=== PATIENT | male | born 1935 | race Caucasian/White ===

== ENCOUNTER 2017-02-05 20:31 | Inpatient (IN) | payer MEDICARE, BC ==
--- NOTE | ~2017-02-05 | IDS ---
Interim Discharge Summary [facility] [address] [place]. [address] NAME: CESAR WILSON III : 37 STATUS : ADM IN PAT#: [id number] AGE: 81 ADM/REG DATE : 02/05/17 MR#: [id number] REPORT SERV DATE: 02/08/17 DICTATED BY: Noah VAZQUEZ DATE: 02/08/17 REPORT STATUS : Draft TRANSCRIBED BY: MODL DATE: 02/08/17 ADMISSION DATE: 02/05/2017 DISCHARGE DATE: DATE OF INTERIM SUMMARY: 02/08/2017. DIAGNOSES AT THE TIME OF INTERIM SUMMARY: 1. Sepsis, resolved urinary tract infection, present on admission. 2. Renal cell cancer, stage IV. 3. Myeloma. 4. Adrenal insufficiency. 5. Chronic atrial fibrillation, on Eliquis therapy. 6. Prior nephrectomy. 7. Prior bilateral adrenalectomy. 8. Pancytopenia secondary to chemotherapy. CONSULTS: Medical Oncology. PROCEDURES: None. BRIEF SUMMARY: This 81-year-old male patient with malignancies as mentioned above, on active therapy under the care of [facility], was admitted with sepsis with suspicion of urinary tract origin. Started on broad-spectrum antimicrobial therapy with alves-cultures. The patient responded well to initial treatment with aggressive volume resuscitation as well as low-dose pressor and the above-mentioned antibiotics. Subsequent cultures from the urine and blood have grown a pansensitive E. coli. As a result of culture information, the patient's antimicrobial therapy has been downgraded to IV Levaquin. We anticipated 10-14 day course. The patient's chemotherapeutic agents have been held secondary to his active infection. He continues to be monitored closely by [facility]. He has been weaned off his pressor. His blood pressure remained stable. Because of his previous surgery, he was given stress-dose steroids with Solu-Cortef at 100 mg IV 3 times a day. We will slowly wean this back to his baseline oral dose of hydrocortisone 4 mg daily. The patient is stabilized to the point that he can be transitioned to the Oncology floor. We will continue to monitor his labs very closely. We will begin the process of mobilizing him to improve his functional status and as mentioned above, we have simplified his antimicrobial therapy as well as started the process of weaning his steroids. The patient's hospitalist care will be provided by Dr. Richi Cook of the Oncology service along with co-management by [facility]. LABORATORY DATA: Significant labs at the time of interim summary: White count is 1.8, hemoglobin 8.8, and platelets 53. BUN is 30, creatinine 0.92, and potassium 4.2. [facility]/LEANNE Interim Discharge Summary [address] [place]. [address] NAME: CESAR WILSON III : 37 STATUS : ADM IN PAT#: [id number] AGE: 81 ADM/REG DATE : 02/05/17 MR#: [id number] REPORT SERV DATE: 02/08/17 DICTATED BY: Noah VAZQUEZ DATE: 02/08/17 REPORT STATUS : Draft TRANSCRIBED BY: LEANNE DATE: 02/08/17 Noah Vazquez M.D. / [id number]
--- NOTE | ~2017-02-05 | HP ---
History And Physical [address] [place]. [address] NAME: CESAR WILSON III : 37 STATUS : ADM IN [facility]#: [id number] AGE: 81 ADM/REG DATE : 02/05/17 MR#: [id number] REPORT SERV DATE: 02/06/17 DICTATED BY: BELINDA GLYNN DATE: 02/06/17 REPORT STATUS : Draft TRANSCRIBED BY: MODL DATE: 02/06/17 DATE OF ADMISSION: 02/05/2017 CHIEF COMPLAINT: An 81-year-old male presenting with lethargy, and fevers. HISTORY OF PRESENT ILLNESS: The patient's history was obtained through careful interview with the patient, , and daughter, coupled with review of [facility] and [facility] medical records. The patient has longstanding metastatic renal cell carcinoma to the liver and lungs, undergoing chemotherapy under the care Dr. Sharma. On the morning of admission, he developed significant illness. He "stayed in bed" all day long, had some nausea, but no vomiting and was extremely lethargic. By the evening, the patient was seemed to be poorly responsive. He had fevers, chills, was weak, and shaky. He has had a cough productive of thick mucous. We needed to lose slight urine continence tonight. He has had about a 30-pound weight loss over the last 20 years but this has been very gradual. He has no pain complaints tonight. No headache, no chest pain, no back pain, no abdominal pain. No shortness of breath. No hematuria. No dysuria. REVIEW OF SYSTEMS: Otherwise, a 14-point review of systems was obtained and was negative. PAST MEDICAL HISTORY: 1. Metastatic renal cell carcinoma to the liver and lungs, followed by Dr. Sharma since 1995. 2. Multiple myelomas. 3. 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 4. Depression/anxiety/bipolar disorder. 5. Atrial fibrillation on Eliquis, followed by Dr. Quinteros. 6. Hypertension. 7. Pneumonia. 8. COPD. 9. Previous bacteremia with Enterobacter in May 2016. 10.Abdominal aortic aneurysm. 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 12.Colon polyps seen by Dr. Gudino. 13.Pancreatitis. History And Physical [address] [place]. [address] NAME: CESAR WILSON III : 37 STATUS : ADM IN PAT#: [id number] AGE: 81 ADM/REG DATE : 02/05/17 MR#: [id number] REPORT SERV DATE: 02/06/17 DICTATED BY: BELINDA GLYNN DATE: 02/06/17 REPORT STATUS : Draft TRANSCRIBED BY: MODL DATE: 02/06/17 PAST SURGICAL HISTORY: 1. Left nephrectomy under the care of Dr. Martines. 2. Bilateral adrenalectomy. 3. Right inguinal hernia repair. 4. Cholecystectomy. 5. Neck cyst surgery. ALLERGIES: PENICILLIN. SOCIAL HISTORY: Quit smoking. Drinks occasional wine. He is . He has two children. Lives in [place], [place]. 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 FAMILY HISTORY: Mother at 82 years of age. Father with colon cancer and congestive heart failure. There is also an apparent family history of Von Hippel-Lindau syndrome. CURRENT MEDICATIONS: 1. Aspirin 81 mg daily. 2. Xgeva. 3. Flonase. 4. Multivitamin. 5. Florastor. 6. Calcium and vitamin D. 7. Decadron as needed. 8. Eliquis p.o. b.i.d. 9. Rythmol t.i.d. 10.Florinef. 11.Hydrocortisone. 12.Phenergan p.r.n. 13.Protonix. 14.Zoloft. 15.Vitamin B12. 16.Revlimid. PHYSICAL EXAMINATION: VITAL SIGNS: Temperature 101.3, pulse 80, blood pressure was initially 140/61, but then began to sustain in the 70s systolic and during my evaluation it drop to 72/39, respiratory rate 16, O2 saturation 97% on room air. GENERAL: An ill-appearing male, in no evidence of distress, but is quite lethargic HEENT: Pupils are equal, round, and reactive to light. No conjunctival pallor. No scleral icterus. Nares are patent. Oropharynx is clear of obstruction. Very dry mucous membranes. NECK: Trachea midline. No thyromegaly. LYMPH: No cervical lymphadenopathy. No supraclavicular lymphadenopathy. RESPIRATORY: Clear to auscultation at bases. No wheezes, rales, or rhonchi. Normal respiratory effort. History And Physical [id number] [facility] [place]. [address] NAME: CESAR WILSON III : 37 STATUS : ADM IN PAT#: [id number] AGE: 81 ADM/REG DATE : 02/05/17 MR#: [id number] REPORT SERV DATE: 02/06/17 DICTATED BY: BELINDA GLYNN DATE: 02/06/17 REPORT STATUS : Draft TRANSCRIBED BY: MODMykel DATE: 02/06/17 CARDIOVASCULAR: Regular rate and rhythm. No murmurs, rubs, or gallops. No extremity edema is appreciated. ABDOMEN: Completely soft without any tenderness on my exam. No hepatosplenomegaly can be appreciated. DERMATOLOGICAL: Warm and dry extremities. No pallor. No cyanosis. PSYCHIATRIC: Quite lethargic but easily aroused, focal stimuli. He is oriented x3 at this time. He has a normal affect and a good mood. LABORATORY DATA: White blood cell count 1.6, hemoglobin 11, hematocrit 34, platelets 75. Sodium 141, potassium 3.6, chloride 104, bicarb 24, BUN 30, creatinine 1.45 from a baseline creatinine of 0.9, glucose 126, lactic acid 3.2. Influenza negative. Urinalysis shows greater than 182 red blood cells, 172 white blood cells, moderate leukocyte esterase, positive nitrites. STUDIES: Chest x-ray by my own evaluation shows no acute cardiopulmonary process. ASSESSMENT AND PLAN: 1. Neutropenic fever, on chemotherapy, metastatic disease to the liver and lungs. Check blood cultures. Check urine culture. Place on IV cefepime and IV vancomycin. 2. Adrenal crisis. Place on IV hydrocortisone. Stress dosing. Admit to the [facility] for now. I placed a central line as well in the emergency department and started IV Levophed. 3. Acute kidney injury, place on IV fluids. 4. Paroxysmal atrial fibrillation, on Eliquis. 5. Renal cell carcinoma. Oncology consult with Dr. Sharma. 6. Hematuria, Took a CT scan of the abdomen on the morning of February 06. KPL/MODL Belinda Glynn M.D. / [id number] CC: Noah Vazquez M.D. Unknown Hamzah Sigala M.D.
--- NOTE | ~2017-02-05 | DS ---
Discharge Summary [facility] [address] [place]. [address] NAME: CESAR WILSON III : 37 STATUS : DIS IN PAT#: [id number] AGE: 81 ADM/REG DATE : 02/05/17 MR#: [id number] REPORT SERV DATE: 02/11/17 DICTATED BY: LEEANNA BURRIS DATE: 02/11/17 REPORT STATUS : Draft TRANSCRIBED BY: MODL DATE: 02/11/17 ADMISSION DATE: 02/05/2017 DISCHARGE DATE: 02/11/2017 DISCHARGE DIAGNOSES: 1. Sepsis, resolved. 2. Urinary tract infection present on admission, positive Escherichia coli. 3. Renal cell carcinoma, stage IV. 4. Multiple myeloma. 5. Adrenal insufficiency. 6. Chronic atrial fibrillation, on Eliquis. 7. Prior nephrectomy. 8. Prior bilateral adrenalectomy. 9. Pancytopenia, chemo induced. CONSULTATIONS: Oncology. PROCEDURES: None. IMAGIN. Chest x-ray on February 05, 2017 finding suggest underlying clinical COPD, emphysematous type. 2. CT abdomen and pelvis, February 06, 2017; impression, question interval procedures to the liver. The right hepatic lobe appears mildly atrophied and there is now development of a remaining calcified mass not seen previously. There has been a remote nephrectomy and bilateral adrenalectomy. Progressive increase in abdominal aortic size, recommend Vascular consultation, possibly of a covered stent. No acute GI or obstruction is seen. LABORATORY DATA: February 11, 2017: WBC is 3.0, hemoglobin 11.1, hematocrit 33.8, and platelet count is 70. Sodium is 147, potassium 4.4, chloride 113, CO2 is 25, BUN is 29, creatinine is 1.08. Glucose is 98 and calcium is 8.5. COURSE OF HOSPITAL STAY: Please refer to history and physical dictated by Dr. Tr Ponce on February 05, 2017, as well as consultation note by Dr. Sharma on February 05 and interim note on February [address] Vazquez. This patient is an 81-year-old male who was admitted for sepsis with suspicion of urinary tract origin. The patient was initially started on broad-spectrum antibiotic. Cultures did return positive E. coli. The antibiotic was changed to Levaquin. He will complete antibiotics on February 14, 2017. The patient was followed by Oncology during his hospital stay. Blood work has noted pancytopenia due to chemotherapy. The patient was initially on pressors, but was able to wean off. His blood pressure is stable at this time. Due to the patient's previous surgery, the patient has been on the Solu-Cortef, he is back on his home dosing. The patient is stable at this time and being discharged home on home medications with the addition of Levaquin to complete on February 14, 2017. The patient has had complaints Discharge Summary [address] [place]. [address] NAME: CESAR WILSON III : 37 STATUS : DIS IN PAT#: [id number] AGE: 81 ADM/REG DATE : 02/05/17 MR#: [id number] REPORT SERV DATE: 02/11/17 DICTATED BY: LEEANNA BURRIS DATE: 02/11/17 REPORT STATUS : Draft TRANSCRIBED BY: LEANNE DATE: 02/11/17 of generalized weakness and has been able to ambulate with staff using a walker without difficulty. We will discharge home with home health care and physical therapy. DISCHARGE MEDICATIONS: 1. Eliquis 2.5 mg one p.o. twice daily. 2. Aspirin 81 mg one daily. 3. Vitamin B12 2500 mcg tab and 5000 mcg sublingual at bedtime. 4. Florinef 0.1 mg one p.o. every morning. 5. Decadron 4 mg and 40 mg p.o. every seven days. 6. Flonase nasal spray, two sprays at bedtime. 7. Cortef 5 mg and 40 mg p.o. every morning. 8. Cortef 5 mg and 40 mg p.r.n. for acute illness. 9. Levaquin 750 mg to be complete one daily to be completed on February 14, 2017. 10.Multivitamin one daily. 11.Protonix 40 mg one p.o. daily. 12.Rythmol 150 mg and 75 mg p.o. three times daily. 13.Florastor 250 mg one p.o. at supper. 14.Zoloft 100 mg one p.o. every morning. 15.Calcium plus vitamin D one p.o. at bedtime. 16.Xgeva per Oncology. 17.Metronidazole 0.75% topical to nose. 18.PreserVision soft gels one cap twice daily. 19.Phenergan 25 mg and 12.5 mg every six hours p.r.n. for nausea. 20.Revlimid per Oncology. 21.Travatan Z 0.004% one drop ophthalmic in both bilateral eyes at bedtime. 22.Vitamin A, vitamin C, and vitamin E, zinc, copper one cap p.o. twice daily. 23.Senokot tab 17.2 mg p.o. p.r.n. for constipation. This discharge took less than 30 minutes. RONALD/LEANNE Leeanna Burris NP / [id number] CC: Richi Cook MD
--- NOTE | ~2017-02-05 | CN ---
Consultation Report [facility] [address] [place]. [address] NAME: CESAR WILSON III : 37 STATUS : ADM IN PAT#: [id number] AGE: 81 ADM/REG DATE : 02/05/17 MR#: [id number] REPORT SERV DATE: 02/06/17 DICTATED BY: RAN PLUNKETT DATE: 02/06/17 REPORT STATUS : Draft TRANSCRIBED BY: MODL DATE: 02/06/17 CONSULTATION DATE OF CONSULTATION: REASON FOR REFERRAL: Multiple myeloma and renal cell carcinoma. HISTORY OF PRESENT ILLNESS: Mr. Wilson is a gentleman with two malignancies, one is metastatic renal cell carcinoma that he has had for many years. The other is multiple myeloma. He has been on Revlimid and dexamethasone with good control of both diseases when last checked. He is admitted now with fever, hypotension, and confusion. I reviewed all of his laboratory. His temperature was 101.3 degrees. I reviewed his laboratory studies which show a creatinine of 1.28, albumin of 2.5, WBC today of 5.0 and 1.6 last evening, hemoglobin 9.9, platelets 77,000. He is on cefepime and has received IV fluids and is doing better. Of note, he does have adrenal insufficiency secondary to adrenalectomy and is on maintenance therapy. He has received stress dose steroids during this admission. Currently, he is able to recognize me and speak coherently. REVIEW OF SYSTEMS: A complete review of systems was otherwise negative. PHYSICAL EXAMINATION: GENERAL: Reveals a well-developed gentleman. VITAL SIGNS: 99.2, 91/53, 50, respirations 17. He had an electrocardiogram which shows sinus bradycardia and a right bundle-branch block which I personally reviewed. CARDIOVASCULAR: Shows regular rate and rhythm. SKIN: Without rashes or nodules. ABDOMEN: Soft. DATA REVIEW: As per the HPI. ASSESSMENT: 1. Multiple myeloma, which has been controlled. We will hold his Revlimid. 2. Bone metastases. He is on denosumab. We will not give this as an inpatient. 3. Renal cell carcinoma. This has been controlled. 4. Adrenal insufficiency, on replacement. DEVORAH/LEANNE Ran Plunkett M.D. Consultation Report [address] [place] [address] NAME: CESAR WILSON III : 37 STATUS : ADM IN PAT#: [id number] AGE: 81 ADM/REG DATE : 02/05/17 MR#: [id number] REPORT SERV DATE: 02/06/17 DICTATED BY: RAN PLUNKETT DATE: 02/06/17 REPORT STATUS : Draft TRANSCRIBED BY: LEANNE DATE: 02/06/17 / [id number] CC: Hamzah Rush M.D.
[2017-02-05 19:50] LABS: BASOPHILS 0.6 %; BASOPHILS ABSOLUTE 0.01 10/3/uL (0.0-0.16); EOSINOPHILS 0.6 %; EOSINOPHILS ABSOLUTE 0.01 10/3/uL (0.0-0.53); IMMATURE GRANULOCYTES 0.6 %; LYMPHOCYTES 17.6 %; LYMPHOCYTES ABSOLUTE 0.28 10/3/uL (0.67-4.30); MEAN CORPUS HGB CONC 32.4 g/dL (32.0-36.0); MEAN CORPUSCULAR HEMOGLOB 33.8 pg (26.0-34.0); MEAN PLATELET VOLUME 10.6 fL (9.2-13.0); MONOCYTES 4.4 %; MONOCYTES ABSOLUTE 0.07 10/3/uL (0.21-1.20); NEUTROPHILS 76.2 %; NEUTROPHILS ABSOLUTE 1.21 10/3/uL (2.02-8.40); PLATELET COUNT 75 10/3/uL (150-400); RBC DISTRIBUTION WIDTH 17.2 % (12.0-16.0); RED CELL COUNT 3.25 10/6/uL (4.7-6.1)
[2017-02-05 19:51] LABS: IMMATURE GRANULOCYTES ABSOLUTE 0.01 10/3/uL (0.0-0.11); MANUAL DIFF NO %; MEAN CORPUSCULAR VOLUME 104.6 fL (80-100); WHITE BLOOD CELLS 1.6 10/3/uL (4.5-10.5)
[2017-02-05 19:57] LABS: ASCORBIC ACID (UR NOT ORDER) 40 (NEG); BILIRUBIN, URINE NEGATIVE (NEG); ER URINALYSIS TAT 0 Hrs 12 Mins; KETONE, URINE NEGATIVE (NEG); LEUKOCYTE ESTERASE(NOT OR MOD (NEG); WBC (NOT ORDERED) (RFLEX) 172 (0-5)
[2017-02-05 19:58] LABS: NITRITE (URINE) POS (NEG)
[2017-02-05 20:03] LABS: INFLUENZA A SCREEN NEGATIVE (NEGATIVE); INFLUENZA B SCREEN NEGATIVE (NEGATIVE)
[2017-02-05 20:10] LABS: ALBUMIN 3.5 G/DL (3.5-5.0); BAND NEUTROPHILS 14 %; CALCIUM, SERUM 8.4 MG/DL (8.5-10.4); CHLORIDE, SERUM 104 MMOL/L (96-112); CO2 (CARBON DIOXIDE) 24 MMOL/L (24-34); CREATININE 1.45 MG/DL (0.70-1.30); ER DIFF TAT 0 Hrs 25 Mins; GFR AFRICAN AMERICAN 52 ML/MIN (>=60); GFR NON AFRICAN AMERICAN 45 ML/MIN (>=60); LYMPHOCYTES 17 %; LYMPHOCYTES ABSOLUTE (CALC) 0.27 10/3/uL (0.67-4.30); MONOCYTES 1 %; MONOCYTES ABSOLUTE (CALC) 0.02 10/3/uL (0.21-1.20); NEUTROPHILS ABSOLUTE (CALC) 1.31 10/3/uL (2.02-8.40); PLATELET ESTIMATE DEC (ADEQUATE); SEGMENTED NEUTROPHIL (0) 68 %; SGOT(AST) 66 U/L (5-40); SGPT(ALT) 57 U/L (5-65); SODIUM, SERUM 141 MMOL/L (135-148); TOTAL BILIRUBIN 1.1 MG/DL (0-1.2); TOTAL NUCLEATED CELLS 100; TOTAL PROTEIN 6.6 G/DL (6.0-8.5)
[2017-02-05 20:11] LABS: A/G RATIO 1.1 (0.7-1.9); ALKALINE PHOSPHATASE 153 U/L (45-117); ANISOCYTOSIS 1+ (5-10/OIF) (0-5/OIF); BUN (BLOOD UREA NITROGEN) 30 MG/DL (6-23); GLOBULIN 3.1 G/DL (2.5-4.1); GLUCOSE, SERUM 126 MG/DL (60-99); MACROCYTES 1+ (5-10/OIF) (0-5/OIF); OVALOCYTES 1+ (3-10/OIF) (0-2/OIF); POTASSIUM, SERUM 3.6 MMOL/L (3.5-5.3); TEARDROP SHAPED RBCS OCC (0-2/OIF)
[2017-02-05 20:12] LABS: SCHISTOCYTES OCC (0-2/OIF)
[~2017-02-05 20:31] MED LIST: ASA5GR PO; ASAB PO; CALCIUM PO; CALTRA600D PO; CALTRAT600 PO; CENTRUM PO; CENTRUM TAB1 TAB PO; CORTEF20 MG PO; CORTEF5 PO; COZAAR100 MG PO; CYANO1000T PO; CYANOCOBALAMIN PO; DEX4 PO; ELIQUIS 2.5 MG2.5 MG PO; FLONASE NAS; FLORASTOR250 MG PO; FLORINEF0.1 MG PO; FOSAMAX70 MG PO; HYDROCORTISONE; HYDROCORTISONE PO; IMOD PO; INLYTA1 MG PO; INLYTA5 MG PO; LEVAQUIN750 MG PO; METROCREAM0.75 % TOP; METROGEL1 % TOP; METRONIDAZOLE 0.75% TOP; MULTIPLE VIT PO; MULTIVIT/MIN PO; PR25 PO; PRESER VISION PO; PRESERVISION A1 EACH PO; PROTONIX PO; PROZ10 PO; PROZAC PO; PROZAC40 MG PO; REVLIMID15 MG PO; REVLIMID25 MG PO; RYTHMOL150 MG PO; SENTAB PO; TRAVATAN OPH; TRAVATAN Z0.004 % OPH; TRIDERM0.1 % TOP; VITAMIN B-122500 MCG PO; VITAMIN B-122500 MCG SL; WELCHOL 625 MG625 MG OR; WELCHOL 625 MG625 MG PO; XGEVA120 MG/1.7 SC; ZOFRAN8 PO; ZOFRANODT8 PO; ZOL100 PO; ZOL50 PO; [UNRECOGNIZED DRUG - OTHER] PO; [UNRECOGNIZED DRUG - OTHER] RE; [UNRECOGNIZED DRUG - REMARK]
[2017-02-05] MEDS ORDERED: VITAMIN B-122500 MCG SL (20:32)
[2017-02-05] MEDS ORDERED: REVLIMID15 MG PO (20:36)
[2017-02-05] MEDS ORDERED: *UNABLE3 (20:37)
[2017-02-06 04:43] LABS: HEMOGLOBIN 9.9 g/dL (13.6-17.8); MEAN CORPUS HGB CONC 33.7 g/dL (32.0-36.0); MEAN CORPUSCULAR HEMOGLOB 35.1 pg (26.0-34.0); MEAN CORPUSCULAR VOLUME 104.3 fL (80-100); MEAN PLATELET VOLUME 11.4 fL (9.2-13.0); PLATELET COUNT 77 10/3/uL (150-400); RBC DISTRIBUTION WIDTH 17.2 % (12.0-16.0); RED CELL COUNT 2.82 10/6/uL (4.7-6.1)
[2017-02-06 04:47] LABS: HEMATOCRIT 29.4 % (40.0-51.0); INTERNATIONAL NORMAL RATI 1.5 UNITS (-); MANUAL DIFF YES %; PARTIAL THROMBO TIME 32.1 SEC (22.5-37.2); PROTIME (NOT ORD) 17.8 SEC (12.0-14.5)
[2017-02-06 05:05] LABS: BUN (BLOOD UREA NITROGEN) 32 MG/DL (6-23); CHLORIDE, SERUM 113 MMOL/L (96-112); CO2 (CARBON DIOXIDE) 20 MMOL/L (24-34); CREATININE 1.26 MG/DL (0.70-1.30); GFR AFRICAN AMERICAN 62 ML/MIN (>=60); GFR NON AFRICAN AMERICAN 54 ML/MIN (>=60); SGOT(AST) 59 U/L (5-40); SGPT(ALT) 57 U/L (5-65); SODIUM, SERUM 144 MMOL/L (135-148)
[2017-02-06 05:18] LABS: A/G RATIO 0.9 (0.7-1.9); ALBUMIN 2.5 G/DL (3.5-5.0); ALKALINE PHOSPHATASE 121 U/L (45-117); CALCIUM, SERUM 7.4 MG/DL (8.5-10.4); GLOBULIN 2.7 G/DL (2.5-4.1); GLUCOSE, SERUM 166 MG/DL (60-99); TOTAL PROTEIN 5.2 G/DL (6.0-8.5); ULTRASENSITIVE TSH 0.916 MCIU/ML (0.358-3.740)
[2017-02-06 05:25] LABS: ANISOCYTOSIS 1+ (5-10/OIF) (0-5/OIF); BAND NEUTROPHILS 13 %; LYMPHOCYTES 5 %; LYMPHOCYTES ABSOLUTE (CALC) 0.25 10/3/uL (0.67-4.30); MACROCYTES 1+ (5-10/OIF) (0-5/OIF); MONOCYTES 4 %; NEUTROPHILS ABSOLUTE (CALC) 4.55 10/3/uL (2.02-8.40); PLATELET ESTIMATE DEC (ADEQUATE); SEGMENTED NEUTROPHIL (0) 78 %; TEARDROP SHAPED RBCS OCC (0-2/OIF); TOTAL NUCLEATED CELLS 100
[2017-02-06 05:26] LABS: POLYCHROMASIA 1+ (2-5/OIF) (0-1/OIF)
[2017-02-06] MEDS ORDERED: CORTEF5 PO (10:46)
[2017-02-06] MEDS ORDERED: FLONASE NAS (10:52)
[2017-02-06] MEDS ORDERED: PRESERVISION A1 EACH PO (10:53)
[2017-02-06] MEDS ORDERED: TRAVATAN Z 0.004% OPH (10:53)
[2017-02-06] MEDS ORDERED: SENTAB PO (10:55)
[2017-02-07 04:20] LABS: BASOPHILS 0 %; EOSINOPHILS 0 %; HEMATOCRIT 27.2 % (40.0-51.0); IMMATURE GRANULOCYTES 0.6 %; IMMATURE GRANULOCYTES ABSOLUTE 0.02 10/3/uL (0.0-0.11); LYMPHOCYTES 6.1 %; LYMPHOCYTES ABSOLUTE 0.21 10/3/uL (0.67-4.30); MEAN CORPUS HGB CONC 33.1 g/dL (32.0-36.0); MEAN CORPUSCULAR HEMOGLOB 34.1 pg (26.0-34.0); MONOCYTES ABSOLUTE 0.52 10/3/uL (0.21-1.20); NEUTROPHILS 78.3 %; NEUTROPHILS ABSOLUTE 2.72 10/3/uL (2.02-8.40); PLATELET COUNT 71 10/3/uL (150-400); RED CELL COUNT 2.64 10/6/uL (4.7-6.1); WHITE BLOOD CELLS 3.5 10/3/uL (4.5-10.5)
[2017-02-07 04:21] LABS: MANUAL DIFF NO %
[2017-02-07 04:45] LABS: ALBUMIN 2.3 G/DL (3.5-5.0); BUN (BLOOD UREA NITROGEN) 31 MG/DL (6-23); CALCIUM, SERUM 7.2 MG/DL (8.5-10.4); CHLORIDE, SERUM 116 MMOL/L (96-112); CO2 (CARBON DIOXIDE) 19 MMOL/L (24-34); CREATININE 0.92 MG/DL (0.70-1.30); GFR AFRICAN AMERICAN 91 ML/MIN (>=60); GFR NON AFRICAN AMERICAN 78 ML/MIN (>=60); GLUCOSE, SERUM 170 MG/DL (60-99); POTASSIUM, SERUM 3.2 MMOL/L (3.5-5.3); SODIUM, SERUM 146 MMOL/L (135-148)
[2017-02-07 04:46] LABS: PHOSPHORUS, SERUM 2.6 MG/DL (2.5-4.5)
[2017-02-07 04:54] LABS: ANISOCYTOSIS 1+ (5-10/OIF) (0-5/OIF); MACROCYTES 1+ (5-10/OIF) (0-5/OIF); PLATELET ESTIMATE DEC (ADEQUATE)
[2017-02-07 04:55] LABS: TEARDROP SHAPED RBCS FEW (3-10/OIF)
[2017-02-07 05:46] LABS: PROCALCITONIN 3.17 ng/mL (<0.5)
[2017-02-08 04:44] LABS: HEMATOCRIT 26.3 % (40.0-51.0); HEMOGLOBIN 8.8 g/dL (13.6-17.8); MEAN CORPUS HGB CONC 33.5 g/dL (32.0-36.0); MEAN CORPUSCULAR HEMOGLOB 34.8 pg (26.0-34.0); MEAN PLATELET VOLUME 11.8 fL (9.2-13.0); PLATELET COUNT 53 10/3/uL (150-400); RED CELL COUNT 2.53 10/6/uL (4.7-6.1)
[2017-02-08 04:47] LABS: WHITE BLOOD CELLS 1.8 10/3/uL (4.5-10.5)
[2017-02-08 04:48] LABS: MANUAL DIFF YES %
[2017-02-08 04:52] LABS: BUN (BLOOD UREA NITROGEN) 30 MG/DL (6-23); CALCIUM, SERUM 7.4 MG/DL (8.5-10.4); CHLORIDE, SERUM 116 MMOL/L (96-112); CO2 (CARBON DIOXIDE) 20 MMOL/L (24-34); CREATININE 0.92 MG/DL (0.70-1.30); GFR AFRICAN AMERICAN 91 ML/MIN (>=60); GFR NON AFRICAN AMERICAN 78 ML/MIN (>=60); GLUCOSE, SERUM 146 MG/DL (60-99); SODIUM, SERUM 146 MMOL/L (135-148)
[2017-02-08 05:01] LABS: POTASSIUM, SERUM 4.2 MMOL/L (3.5-5.3)
[2017-02-08 05:25] LABS: ANISOCYTOSIS 1+ (5-10/OIF) (0-5/OIF); BAND NEUTROPHILS 4 %; LYMPHOCYTES 7 %; LYMPHOCYTES ABSOLUTE (CALC) 0.13 10/3/uL (0.67-4.30); MACROCYTES 1+ (5-10/OIF) (0-5/OIF); MONOCYTES 10 %; MONOCYTES ABSOLUTE (CALC) 0.18 10/3/uL (0.21-1.20); NEUTROPHILS ABSOLUTE (CALC) 1.49 10/3/uL (2.02-8.40); PLATELET ESTIMATE DEC (ADEQUATE); SEGMENTED NEUTROPHIL (0) 79 %; TOTAL NUCLEATED CELLS 100
[2017-02-09 07:41] LABS: BUN (BLOOD UREA NITROGEN) 30 MG/DL (6-23); CALCIUM, SERUM 7.6 MG/DL (8.5-10.4); CHLORIDE, SERUM 114 MMOL/L (96-112); CO2 (CARBON DIOXIDE) 24 MMOL/L (24-34); CREATININE 0.94 MG/DL (0.70-1.30); GFR AFRICAN AMERICAN 88 ML/MIN (>=60); GFR NON AFRICAN AMERICAN 76 ML/MIN (>=60); GLUCOSE, SERUM 125 MG/DL (60-99); POTASSIUM, SERUM 4.4 MMOL/L (3.5-5.3); SODIUM, SERUM 145 MMOL/L (135-148)
[2017-02-09 07:43] LABS: BASOPHILS 0 %; EOSINOPHILS 0 %; HEMATOCRIT 27.4 % (40.0-51.0); HEMOGLOBIN 9.2 g/dL (13.6-17.8); IMMATURE GRANULOCYTES 0.4 %; IMMATURE GRANULOCYTES ABSOLUTE 0.01 10/3/uL (0.0-0.11); LYMPHOCYTES 7.3 %; LYMPHOCYTES ABSOLUTE 0.18 10/3/uL (0.67-4.30); MEAN CORPUS HGB CONC 33.6 g/dL (32.0-36.0); MEAN CORPUSCULAR HEMOGLOB 34.7 pg (26.0-34.0); MEAN CORPUSCULAR VOLUME 103.4 fL (80-100); MONOCYTES 14.9 %; MONOCYTES ABSOLUTE 0.37 10/3/uL (0.21-1.20); NEUTROPHILS 77.4 %; NEUTROPHILS ABSOLUTE 1.92 10/3/uL (2.02-8.40); PLATELET COUNT 60 10/3/uL (150-400); RBC DISTRIBUTION WIDTH 16.9 % (12.0-16.0); RED CELL COUNT 2.65 10/6/uL (4.7-6.1); WHITE BLOOD CELLS 2.5 10/3/uL (4.5-10.5)
[2017-02-09 07:45] LABS: MANUAL DIFF NO %
[2017-02-09 08:11] LABS: MACROCYTES 1+ (5-10/OIF) (0-5/OIF); PLATELET ESTIMATE DEC (ADEQUATE)
[2017-02-10 07:28] LABS: BASOPHILS 0 %; EOSINOPHILS 0.3 %; EOSINOPHILS ABSOLUTE 0.01 10/3/uL (0.0-0.53); HEMATOCRIT 27.8 % (40.0-51.0); HEMOGLOBIN 9.2 g/dL (13.6-17.8); IMMATURE GRANULOCYTES 0.6 %; IMMATURE GRANULOCYTES ABSOLUTE 0.02 10/3/uL (0.0-0.11); LYMPHOCYTES 9.6 %; MEAN CORPUS HGB CONC 33.1 g/dL (32.0-36.0); MEAN CORPUSCULAR HEMOGLOB 34.5 pg (26.0-34.0); MEAN CORPUSCULAR VOLUME 104.1 fL (80-100); MONOCYTES 19.4 %; MONOCYTES ABSOLUTE 0.61 10/3/uL (0.21-1.20); NEUTROPHILS 70.1 %; PLATELET COUNT 59 10/3/uL (150-400); RBC DISTRIBUTION WIDTH 17.1 % (12.0-16.0); RED CELL COUNT 2.67 10/6/uL (4.7-6.1); WHITE BLOOD CELLS 3.1 10/3/uL (4.5-10.5)
[2017-02-10 07:29] LABS: MANUAL DIFF NO %
[2017-02-10 07:38] LABS: BUN (BLOOD UREA NITROGEN) 30 MG/DL (6-23); CALCIUM, SERUM 7.8 MG/DL (8.5-10.4); CHLORIDE, SERUM 112 MMOL/L (96-112); CO2 (CARBON DIOXIDE) 25 MMOL/L (24-34); GFR AFRICAN AMERICAN 93 ML/MIN (>=60); GFR NON AFRICAN AMERICAN 80 ML/MIN (>=60); SODIUM, SERUM 146 MMOL/L (135-148)
[2017-02-10 07:39] LABS: GLUCOSE, SERUM 96 MG/DL (60-99); POTASSIUM, SERUM 3.5 MMOL/L (3.5-5.3)
[2017-02-10 07:48] LABS: MACROCYTES 1+ (5-10/OIF) (0-5/OIF); PLATELET ESTIMATE DEC (ADEQUATE); POLYCHROMASIA 1+ (2-5/OIF) (0-1/OIF)
[2017-02-11 06:37] LABS: BASOPHILS 0.3 %; BASOPHILS ABSOLUTE 0.01 10/3/uL (0.0-0.16); EOSINOPHILS 0.7 %; EOSINOPHILS ABSOLUTE 0.02 10/3/uL (0.0-0.53); IMMATURE GRANULOCYTES ABSOLUTE 0.03 10/3/uL (0.0-0.11); LYMPHOCYTES 16.4 %; MEAN CORPUS HGB CONC 32.8 g/dL (32.0-36.0); MEAN CORPUSCULAR HEMOGLOB 34.6 pg (26.0-34.0); MEAN CORPUSCULAR VOLUME 105.3 fL (80-100); MONOCYTES 11.2 %; MONOCYTES ABSOLUTE 0.34 10/3/uL (0.21-1.20); NEUTROPHILS 70.4 %; NEUTROPHILS ABSOLUTE 2.14 10/3/uL (2.02-8.40); PLATELET COUNT 70 10/3/uL (150-400); RBC DISTRIBUTION WIDTH 17.3 % (12.0-16.0)
[2017-02-11 06:39] LABS: HEMATOCRIT 33.8 % (40.0-51.0); HEMOGLOBIN 11.1 g/dL (13.6-17.8); MANUAL DIFF NO %; RED CELL COUNT 3.21 10/6/uL (4.7-6.1)
[2017-02-11 06:51] LABS: BUN (BLOOD UREA NITROGEN) 29 MG/DL (6-23); CALCIUM, SERUM 8.5 MG/DL (8.5-10.4); CHLORIDE, SERUM 113 MMOL/L (96-112); CO2 (CARBON DIOXIDE) 25 MMOL/L (24-34); CREATININE 1.08 MG/DL (0.70-1.30); GFR AFRICAN AMERICAN 75 ML/MIN (>=60); GFR NON AFRICAN AMERICAN 64 ML/MIN (>=60); GLUCOSE, SERUM 98 MG/DL (60-99); SODIUM, SERUM 147 MMOL/L (135-148)
[2017-02-11 06:52] LABS: POTASSIUM, SERUM 4.4 MMOL/L (3.5-5.3)
[2017-02-11 07:05] LABS: ANISOCYTOSIS 1+ (5-10/OIF) (0-5/OIF); PLATELET ESTIMATE DEC (ADEQUATE)
[2017-02-11] MEDS ORDERED: LEVAQUIN750 MG PO (11:47)
[2017-02-11] MEDS ORDERED: MULTI-VIT HP PO (11:48)
== END 2017-02-11 13:59 | disposition home health service (06) | DRG 871 ==
LOC: ER 20:31 → 4EA 20:52 → IMCU 21:36 → 4EA 02-08 18:42
PROVIDERS: Emergency Medicine; Internal Medicine; Nurse Practitioner Acute Care; Nurse Practitioner Adult Health
PROC: 02HV33Z Insertion of Infusion Device into Superior Vena Cava, Percutaneous Approach (ICD-10-PCS; principal; 2017-02-06)
PROC: 4A02X4A Measurement of Cardiac Electrical Activity, Guidance, External Approach (ICD-10-PCS; 2017-02-06)
DX: A41.9 Sepsis, unspecified organism (principal); D61.810 Antineoplastic chemotherapy induced pancytopenia; R65.21 Severe sepsis with septic shock; C79.51 Secondary malignant neoplasm of bone; C90.00 Multiple myeloma not having achieved remission; E27.40 Unspecified adrenocortical insufficiency; N39.0 Urinary tract infection, site not specified; C64.9 Malignant neoplasm of unspecified kidney, except renal pelvis; B96.20 Unspecified Escherichia coli [E. coli] as the cause of diseases classified elsewhere; I48.2 Chronic atrial fibrillation; Z79.01 Long term (current) use of anticoagulants
CPT/HCPCS: 36569; 71010; 74176; 80048; 80053; 80069; 81001; 83605; 83735; 84145; 84443; 85025; 85610; 85730; 87040; 87070; 87077; 87086; 87150; 87186; 87205; 87641; 87804; 93005; 96374; 99291; A9270-GY; C1751; J0692; J1720; J1956; J3370